=== PATIENT | male | born 1965 | race Two or more races ===

== ENCOUNTER 2019-08-01 05:59 | Emergency (ER) | payer MEDICAID ==
[~2019-08-01] VITALS: Ht 185.4 cm; Wt 108.9 kg
--- NOTE | 2019-08-01 06:07 | NUR ---
PATIENT CAME TO ER BED 14 [employer] C/O SUICIDAL IDEATIONPLANS TO RUN INTO THE FREEWAY, PER EMS REPORT. PATIENT USED HEROIN AND METH LAST NIGHT. PATIENT'S CLOTHING AND BELONGINGS ARE REMOVED AND PLACED INTO A LOCKER. PATIENT IS PLACED INTO A GOWN. PATIENT REFUSES TO ANSWER QUESTIONS. UNABLE TO PROVIDE URINE AT THIS TIME. Addendum: 08/01/19 at 0621 by ANTONIETTA ALERT AND ORIENTED. NO SOB. BREATHING EVENLY AND UNLABORED ON ROOM AIR. CONNECTED TO MONITOR.
--- NOTE | 2019-08-01 06:19 | NUR ---
SEEN AND EXAMINED BY
--- NOTE | 2019-08-01 06:35 | NUR ---
BLOOD DRAWN AND SENT TO LAB
[2019-08-01 06:47] LABS: BASOPHILS % (AUTO) 0.4 % (0.0-2.0); EOSINOPHILS % (AUTO) 1.5 % (0.0-6.0); HEMATOCRIT 41 % (39-51); HEMOGLOBIN 13.5 g/dL (13.5-17.5); LYMPHOCYTES # (AUTO) 1.6 /CMM (0.8-4.8); LYMPHOCYTES % (AUTO) 16.6 % (20.0-44.0); MEAN CORPUSCULAR HGB CONC 33 g/dl (31.0-36.0); MEAN CORPUSCULAR VOLUME 92 fL (80-96); MONOCYTES % (AUTO) 10.4 % (2.0-12.0); NEUTROPHILS % (AUTO) 71.1 % (43.0-81.0); PLATELET COUNT (AUTO) 212 /CMM (150-450); WHITE BLOOD COUNT (AUTO) 9.9 K/uL (4.3-11.0)
[2019-08-01 07:01] LABS: ALBUMIN 3.5 g/dL (3.4-5.0); BILIRUBIN,DIRECT 0.2 mg/dL (0.0-0.2); BILIRUBIN,TOTAL 0.7 mg/dL (0.2-1.0); CALCIUM, SERUM 8.2 mg/dL (8.5-10.1); CREATININE 0.9 mg/dL (0.6-1.3); TOTAL PROTEIN, SERUM 6.9 g/dL (6.4-8.2)
[2019-08-01 07:02] LABS: SALICYLATE 1.5 mg/dL (2.8-20.0)
[2019-08-01 07:03] LABS: POTASSIUM 2.7 mmol/L (3.5-5.1)
--- NOTE | 2019-08-01 07:15 | NUR ---
REPORT GIVEN TO SHANEL ALLEN FOR [facility].
--- NOTE | 2019-08-01 07:50 | NUR ---
PT UA SENT TO LAB VSS GIVEN BREAKFASST
[2019-08-01] MEDS ORDERED: POTASSIUM CHLORIDE 20 MEQ TAB.PRT.SR PO ONE ×4 (09:00→19:34)
--- NOTE | 2019-08-01 09:22 | NUR ---
pt k is 2.4 refused k meds per md order notified
--- NOTE | 2019-08-01 10:44 | NUR ---
called pinky will be here in a little while
[2019-08-01] MEDS ORDERED: OLANZAPINE 10 MG VIAL IM ONE ×2 (11:50→12:00)
[2019-08-01] MEDS ORDERED: LORAZEPAM INJ 2 MG/ML VIAL ONE (11:50)
--- NOTE | 2019-08-01 11:56 | NUR ---
PT GIVEN ATIVAN AND ZYPREXA 10 MGIM ROSA HERE TO SEE PT
[2019-08-01] MEDS ORDERED: LORAZEPAM INJ 2 MG/ML VIAL IM ONE (12:00)
[2019-08-01] MEDS ORDERED: POTASSIUM CL. PREMIX PERIPHER. 100 ML ONE ×2 (12:18→15:13)
[2019-08-01] MEDS: POTASSIUM CL. PREMIX PERIPHER. 50 ML IV SCH ×4 (12:34→15:09)
--- NOTE | 2019-08-01 12:36 | NUR ---
PT SLEEPY IV STARTED 20G LEFT AC IV POT GIVEN PER MD ORDER MONITORS APPLIED
--- NOTE | 2019-08-01 16:00 | NUR ---
PT K= LAST BAG 50ML PT SLEEPING
--- NOTE | 2019-08-01 17:29 | NUR ---
pt drawn for k= level wrist restaints removed
[2019-08-01 17:41] LABS: CREATININE 0.7 mg/dL (0.6-1.3)
[2019-08-02 04:04] LABS: CALCIUM, SERUM 8.5 mg/dL (8.5-10.1); CREATININE 0.9 mg/dL (0.6-1.3); POTASSIUM 3.3 mmol/L (3.5-5.1)
[2019-08-02] MEDS ORDERED: POTASSIUM CHLORIDE 20 MEQ TAB.PRT.SR PO ONE ×2 (04:26→04:30)
--- NOTE | 2019-08-02 05:50 | NUR ---
PT NO LONGER C/O SUICIDAL IDEATION. DENIES HOMICIDAL IDEATION. PT OK TO BE DISCHARGED HOME PER DR MCMANUS. IV removed. Catheter intact and site benign. Pressure and 4x4 applied to site. No bleeding noted.Patient discharged to home in stable condition. Written and verbal after care instructions given. Patient verbalizes understanding of instruction.Patient is awake and alert to self, day, and place. PT ambulatory with a steady gait. Pt refused to sign homless waiver or wait for discharge paper work. Pt provided with meal tray. Pt provided with TAP card upon request. Pt discharged in stable condition.
[2019-08-02 06:08] VITALS: BP 112/65
== END 2019-08-02 06:10 | disposition home or self-care (01) ==
LOC: ER 06:00
DX: F29 Unspecified psychosis not due to a substance or known physiological condition (principal); F19.10 Other psychoactive substance abuse, uncomplicated; R45.851 Suicidal ideations; F11.10 Opioid abuse, uncomplicated; F15.10 Other stimulant abuse, uncomplicated; F12.10 Cannabis abuse, uncomplicated; F10.10 Alcohol abuse, uncomplicated; E87.6 Hypokalemia; Y90.3 Blood alcohol level of 60-79 mg/100 ml
CPT/HCPCS: 36415 ×2; 80048 ×3; 80076; 80305; 80307; 80329; 85025; 96365; 96366; 96372 ×2; 99285; G0480; J2060; J3480 ×2; J3490